=== PATIENT | male | born 1990 | race Caucasian/White ===

== ENCOUNTER 2017-01-16 15:23 | Emergency (ER) | payer OTHER ==
[~2017-01-16] VITALS: Ht 172.7 cm; Wt 88.6 kg
[~2017-01-16 15:23] MED LIST: OXYC5TAB72 PO
[2017-01-16 15:25] VITALS: BP 124/62; PULSE 96; RESP 18; O2SAT 97
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
[2017-01-16] MEDS ORDERED: HYDROcodone-APAP 5-325 mg Tablet PO ONE (15:40)
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
[2017-01-16 17:21] VITALS: BP 114/59; PULSE 60; RESP 14; O2SAT 98
[2017-01-16] MEDS ORDERED: HYDR-4003 PO (17:57)
[2017-01-16 18:04] VITALS: BP 114/59; PULSE 60; RESP 14; O2SAT 98
== END 2017-01-16 18:05 | disposition home or self-care (01) ==
LOC: SED 15:23
DX: S29.8XXA Other specified injuries of thorax, initial encounter (principal); W50.0XXA Accidental hit or strike by another person, initial encounter; Y93.61 Activity, american tackle football; Y92.321 Football field as the place of occurrence of the external cause; Y99.8 Other external cause status